=== PATIENT | male | born 1970 | race Asian ===

== ENCOUNTER 2019-03-26 14:00 | Emergency (ER) | payer OTHER ==
[~2019-03-26] VITALS: Ht 167.6 cm; Wt 75.0 kg
[~2019-03-26 14:00] MED LIST: DOCU250C91 PO; MIRALAX PO
[2019-03-26 15:50] LABS: BASOPHILS % (AUTO) 1.2 % (0.0-2.0); EOSINOPHILS % (AUTO) 4.3 % (1.0-6.0); HEMATOCRIT 43.2 % (41-53); HEMOGLOBIN 14.3 g/dL (13.5-17.5); LYMPHOCYTES # (AUTO) 1.4 K/uL (1.0-4.8); LYMPHOCYTES % (AUTO) 26.4 % (22.0-44.0); MEAN CORPUSCULAR HEMOGLOBIN 28.9 pg (26.0-34.0); MEAN CORPUSCULAR VOLUME 88 fL (80-100); MONOCYTES # (AUTO) 0.5 K/uL (0.1-1.0); MONOCYTES % (AUTO) 8.5 % (2.0-9.0); NEUTROPHILS # (AUTO) 3.2 K/uL (1.8-7.7); NEUTROPHILS % (AUTO) 59.6 % (40.0-70.0); PLATELET COUNT (AUTO) 220 K/uL (150-450); RED BLOOD CELL COUNT(AUTO) 4.93 MIL/uL (4.50-5.90); RED CELL DISTRIBUTION WIDTH 13.9 % (11.5-14.5)
[2019-03-26 16:03] LABS: ANION GAP 5 mmol/L (8-16); CALCIUM, TOTAL 9.3 mg/dL (8.8-10.5); CARBON DIOXIDE 31 mmol/L (22-29); CHLORIDE 105 mmol/L (98-107); CREATININE 1.17 mg/dL (0.60-1.30); GLOMERULAR FILTR. RATE CALC > 60 mL/min (>60); GLUCOSE,RANDOM 107 mg/dL (70-110); POTASSIUM 4.7 mmol/L (3.5-5.1); SODIUM SERUM 141 mmol/L (136-145); UREA NITROGEN, BLOOD 16 mg/dL (7-18)
[2019-03-26 16:09] LABS: ALANINE AMINOTRANSFERASE 23 U/L (12-78); ALBUMIN 4.2 g/dL (3.4-5.0); ALKALINE PHOSPHATASE 57 U/L (46-116); ASPARTATE AMINOTRANSFERASE 17 U/L (15-37); BILIRUBIN,TOTAL 0.3 mg/dL (0.1-1.0); TOTAL PROTEIN, SERUM 8.3 g/dL (6.4-8.2)
[2019-03-26 17:08] VITALS: BP 124/79
== END 2019-03-26 17:11 | disposition home or self-care (01) ==
LOC: EMS 14:00
DX: K64.8 Other hemorrhoids (principal)

== ENCOUNTER 2025-05-12 09:43 | Emergency (ER) | payer OTHER ==
[~2025-05-12] VITALS: Ht 170.2 cm; Wt 75.0 kg
[~2025-05-12 09:43] MED LIST changes: +ALBU18HF12 IH; +ASPI-1450 PO; +ATOR40TA71 PO; +DOCU-412 PO; -DOCU250C91 PO
[2025-05-12 10:03] VITALS: TEMP 97.9
[2025-05-12] MEDS: DiphenhydrAMINE HCL 50 MG/ML VIAL IVP ONE (12:10)
[2025-05-12] MEDS: DEXAMETHASONE SOD PHOS 4 MG/ML 5 ML VIAL IVP ONE (12:11)
[2025-05-12] MEDS ORDERED: DIPH-1243 PO (13:14)
[2025-05-12] MEDS ORDERED: PRED-554 PO (13:14)
[2025-05-12 13:25] VITALS: BP 127/71; PULSE 84; RESP 18; O2SAT 99
== END 2025-05-12 13:57 | disposition home or self-care (01) ==
LOC: EMS 09:44
DX: T78.1XXA Other adverse food reactions, not elsewhere classified, initial encounter (principal); R21 Rash and other nonspecific skin eruption; Z98.890 Other specified postprocedural states; X58.XXXA Exposure to other specified factors, initial encounter
CPT/HCPCS: 99284; 96374; 96375; J1100; J1200